=== PATIENT | male | born 1985 | race Caucasian/White ===

== ENCOUNTER 2017-06-03 20:41 | Emergency (ER) | payer OTHER ==
[~2017-06-03] VITALS: Ht 185.4 cm; Wt 95.3 kg
--- NOTE | 2017-06-03 20:49 | NUR ---
BB [id number]. LOWER BACK PAIN S/P TWISTING RIGHT TO EXIT HIS CAR. DENIES ANY TRAUMA. PT AOX3 RR EVEN AND UNLABORED. NO SOB NOTED. NAD NOTED. NO NVD AT THIS TIME PT GOWNED AND PLACED ON MONITOR WAITING FOR MD WAGONER. [employer] PARTNER AT BEDSIDE
--- NOTE | 2017-06-03 20:59 | NUR ---
PAC FOSTER AT BEDSIDE FOR EVAL.
[2017-06-03] MEDS ORDERED: ONDANSETRON HCL/PF 4 MG/2 ML VIAL ONE (21:24)
[2017-06-03] MEDS ORDERED: MORPHINE SULFATE INJ 4 MG/ML DISP.SYRIN ONE (21:25)
[2017-06-03] MEDS ORDERED: MORPHINE SULFATE INJ 2 MG/ML DISP.SYRIN IV ONE (21:30)
[2017-06-03] MEDS ORDERED: ONDANSETRON HCL/PF 4 MG/2 ML VIAL IVP ONE (21:30)
--- NOTE | 2017-06-03 21:30 | NUR ---
Viviane boykin in ED - 06/03/17 at 2155 by [facility] AT BEDSIDE FOR CXR
--- NOTE | 2017-06-03 21:30 | NUR ---
RADIOLOGY AT BEDSIDE FOR XR
[2017-06-03 23:16] VITALS: BP 120/68
--- NOTE | 2017-06-03 23:33 | NUR ---
IV removed. Catheter intact and site benign. Pressure and 4x4 applied to site. No bleeding noted. Patient discharged to home in stable condition. Written and verbal after care instructions given. Patient verbalizes understanding of instruction. ambulatory with a steady gait. instructed not to drive. pt verbalize understanding. accompanied by [employer] partner
== END 2017-06-03 23:34 | disposition home or self-care (01) ==
LOC: ER 20:43
DX: M54.5 Low back pain (principal)
CPT/HCPCS: 72100-TC; A4606; J2270; J2405; Z7610